=== PATIENT | male | born 1950 | race Caucasian/White ===

== ENCOUNTER → 2020-01-07 | Outpatient (CLI) | payer MEDICARE, BC, OTHER | LOC: M RAD 14:23 | PROVIDERS: ATTEND Internal Medicine Pulmonary Disease | DX: R91.8 Other nonspecific abnormal finding of lung field (principal) ==

== ENCOUNTER → 2020-07-14 | Outpatient (CLI) | payer MEDICARE, BC, OTHER ==
--- NOTE | 2020-07-19 13:25 | REP ---
CT CHEST WITHOUT CONTRAST HISTORY: Other nonspecific abnormal finding of lung field. COMPARISON: Chest CT studies are reviewed dated 01/07/2020 and 10/18/2019. CT FINDINGS: Preliminary digital financial reporting director radiograph is unremarkable. There is a small peripheral cyst in the upper pole of the left kidney. There is opaque material layering in the dependent portion of the gallbladder consistent with gravel-like gallstones. The visualized upper abdominal structures are otherwise unremarkable. No adrenal abnormality. There is no evidence of hilar or mediastinal mass or adenopathy. No pleural or pericardial effusion is seen. Vascular calcification is noted as before. There is an 8-mm noncalcified pulmonary nodule in the left lower lobe, which appears stable in the interval since the 10/18/2019 prior study. In addition, there is a 9-mm nodule in the lingular segment of the left upper lobe, which also appears stable in that interval. No new pulmonary nodule is appreciated. Lung maxwell are otherwise clear. Bone window settings demonstrate old healed rib fractures on the right. There are some degenerative disc changes in the thoracic spine. IMPRESSION: No change in the size of either the lingular or left lower lobe pulmonary nodule in the interval since the 10/18/2019 study. No new finding. Continued follow-up is advised. [facility]
== END ==
LOC: M RAD 10:05
PROVIDERS: ATTEND Internal Medicine Pulmonary Disease
DX: R91.8 Other nonspecific abnormal finding of lung field (principal)

== ENCOUNTER → 2021-01-19 | Outpatient (CLI) | payer MEDICARE, BC, OTHER ==
--- NOTE | 2021-01-19 14:57 | REP ---
INDICATION: ABNORMAL FINDING OF LUNG FIELD. COMPARISON: Multiple the latest 07/14/2020 TECHNIQUE: Noncontrast enhanced helical technique FINDINGS: There is no change in the mediastinum or pulmonary zay. No mass or adenopathy has developed. There are no pleural or pericardial effusions. There is no significant change in appearance of the imaged upper abdomen. Note is again made of cholelithiasis. The imaged osseous structures are stable and intact. Evaluation of the lung maxwell shows no new abnormal nodules, masses, or opacities. The lingular and left lower lobe nodules are stable. There is mild cylindrical bronchiectasis status quo. IMPRESSION: Stable CT examination of the chest. <Electronically signed by Miki Clifford > 01/19/21 [id number]
== END ==
LOC: M RAD 14:25
PROVIDERS: ATTEND Internal Medicine Pulmonary Disease
DX: R91.8 Other nonspecific abnormal finding of lung field (principal)

== ENCOUNTER → 2022-02-10 | Outpatient (CLI) | payer MEDICARE, BC, OTHER | LOC: M RAD 15:00 | PROVIDERS: ATTEND Internal Medicine Pulmonary Disease | DX: Z87.891 Personal history of nicotine dependence (principal) ==

== ENCOUNTER → 2022-05-03 | Outpatient (CLI) | payer MEDICARE, BC, OTHER ==
[~2022-05-03] MED LIST: ATOR1TAB19 PO; BAYE325T12 PO; BREO1INH INH; BUPR150T12 PO; BUPR300T92 PO; BUSP10TA PO; CLON0.5T2 PO; GABA600T4 PO; INCR1INH INH; LAMO200T3 PO; LISI5TAB11 PO; OMEG12004 PO; REXU1TAB4 PO
[2022-05-03 14:29] LABS: PLATELET COUNT, AUTOMATED 195 10^3/uL (150-450)
[2022-05-03 14:48] LABS: PARTIAL THROMBOPLASTIN TIME 30.5 SECONDS (25.9-37.0); PROTHROMBIN TIME 13.6 SECONDS (12.7-14.5)
== END ==
LOC: M PLALAB 10:52
PROVIDERS: ATTEND Internal Medicine Pulmonary Disease
DX: R91.8 Other nonspecific abnormal finding of lung field (principal)

== ENCOUNTER → 2022-05-03 | Outpatient (CLI) | payer MEDICARE, BC, OTHER | LOC: M LABSMTC 10:00 | PROVIDERS: ATTEND Anesthesiology | DX: Z01.818 Encounter for other preprocedural examination (principal); Z11.52 Encounter for screening for COVID-19; R91.8 Other nonspecific abnormal finding of lung field ==

== ENCOUNTER 2022-05-05 06:05 | Day surgery (SDC) | payer MEDICARE, BC, OTHER ==
[~2022-05-05] VITALS: Ht 177.8 cm; Wt 92.5 kg
[2022-05-05] MEDS ORDERED: LR 1,000 ML IV SCH ×2 (06:25→08:15)
[2022-05-05] MEDS ORDERED: CETACAINE SPRAY 5GM As Ordered ONE (07:13)
[2022-05-05] MEDS ORDERED: THROMBIN SOLN 5,000 UNITS VIAL As Ordered ONE (07:13)
[2022-05-05] MEDS ORDERED: EPINEPHrine 1MG/10ML SYRINGE 1.5IN As Ordered ONE (07:13)
[2022-05-05] MEDS ORDERED: LIDOCAINE 4% INJ 5ML AMP As Ordered ONE (07:21)
[2022-05-05] MEDS ORDERED: ALBUTEROL SULFATE 2.5 MG/0.5 ML INH NEB SOLN As Ordered ONE (07:22)
[2022-05-05] MEDS ORDERED: ALBUTEROL SULFATE 2.5 MG/0.5 ML INH NEB SOLN INH ONE ×2 (07:30→08:15)
[2022-05-05] MEDS ORDERED: LIDOCAINE 4% INJ 5ML AMP INH ONE (07:30)
[2022-05-05] MEDS ORDERED: LIDOCAINE 2% INJ 100 MG/5 ML SYRINGE As Ordered ONE (08:02)
[2022-05-05] MEDS ORDERED: MIDAZOLAM INJ 2MG/2ML VIAL (J2250 PER 1MG) As Ordered ONE (08:02)
[2022-05-05] MEDS ORDERED: ROCURONIUM BROMIDE 50 MG/5 ML VIAL As Ordered ONE (08:02)
[2022-05-05] MEDS ORDERED: SUGAMMADEX SODIUM 500 MG/5 ML VIAL (BRIDION) As Ordered ONE (08:02)
[2022-05-05] MEDS ORDERED: ONDANSETRON 4MG 2ML VIAL As Ordered ONE (08:02)
[2022-05-05] MEDS ORDERED: dexameTHASONE 4 MG/ML 1ML VIAL (J1100 PER 1MG) As Ordered ONE (08:02)
[2022-05-05] MEDS ORDERED: fentaNYL 100 MCG/2 ML INJECTION As Ordered ONE (08:02)
[2022-05-05] MEDS ORDERED: fentaNYL 100 MCG/2 ML INJECTION IV PRN (08:15)
[2022-05-05] MEDS ORDERED: oxyCODONE 5MG TAB PO PRN (08:15)
[2022-05-05] MEDS ORDERED: ONDANSETRON 4MG 2ML VIAL IV PRN (08:15)
[2022-05-05 08:59] VITALS: BP 158/76
== END 2022-05-05 09:33 | disposition home or self-care (01) ==
LOC: M SDC 06:05
PROVIDERS: ATTEND Internal Medicine Pulmonary Disease
DX: C34.12 Malignant neoplasm of upper lobe, left bronchus or lung (principal); J44.9 Chronic obstructive pulmonary disease, unspecified; G47.33 Obstructive sleep apnea (adult) (pediatric)
CPT/HCPCS: 31623; 31625; 88104; 88305; J0171; J1100; J2250; J2405; J3010

== ENCOUNTER → 2022-05-24 | Outpatient (CLI) | payer MEDICARE, BC, OTHER ==
[~2022-05-24] MED LIST changes: +ISOVUE-370 76% 100ML VIAL As Ordered ONE
== END ==
LOC: M RAD 08:47
PROVIDERS: ATTEND Thoracic Surgery (Cardiothoracic Vascular Surgery)
DX: C34.92 Malignant neoplasm of unspecified part of left bronchus or lung (principal)
CPT/HCPCS: 71260; Q9967

== ENCOUNTER → 2022-06-01 | Outpatient (CLI) | payer MEDICARE, BC, OTHER ==
[~2022-06-01] MED LIST changes: -ISOVUE-370 76% 100ML VIAL As Ordered ONE
[2022-06-01 17:58] LABS: PLATELET COUNT, AUTOMATED 212 10^3/uL (150-450)
[2022-06-01 18:15] LABS: INR 1.04; PARTIAL THROMBOPLASTIN TIME 30.1 SECONDS (25.9-37.0)
== END ==
LOC: M LAB 16:55
PROVIDERS: ATTEND Internal Medicine Critical Care Medicine
DX: R91.8 Other nonspecific abnormal finding of lung field (principal)

== ENCOUNTER 2022-06-09 06:24 | Day surgery (SDC) | payer MEDICARE, BC, OTHER ==
[~2022-06-09] VITALS: Ht 177.8 cm; Wt 90.2 kg
[~2022-06-09 06:24] MED LIST changes: +AMIT8CAP4 PO; +LOVA1CAP17 PO; +NEUR300C PO; +OMEGCAP9 PO; +PROAAER10 INH; +REXU1TAB3 PO; +RISP1TAB42 PO
[2022-06-09] MEDS ORDERED: LR 1,000 ML IV SCH ×2 (06:45→08:55)
[2022-06-09] MEDS ORDERED: fentaNYL 100 MCG/2 ML INJECTION As Ordered ONE (07:10)
[2022-06-09] MEDS ORDERED: MIDAZOLAM INJ 2MG/2ML VIAL (J2250 PER 1MG) As Ordered ONE (07:10)
[2022-06-09] MEDS ORDERED: ONDANSETRON 4MG 2ML VIAL As Ordered ONE (07:11)
[2022-06-09] MEDS ORDERED: ROCURONIUM BROMIDE 50 MG/5 ML VIAL As Ordered ONE (07:11)
[2022-06-09] MEDS ORDERED: dexameTHASONE 4 MG/ML 1ML VIAL (J1100 PER 1MG) As Ordered ONE (07:11)
[2022-06-09] MEDS ORDERED: propofoL 200 MG/20 ML VIAL As Ordered ONE (07:11)
[2022-06-09] MEDS ORDERED: LIDOCAINE 2% 100MG/5ML SDV (FOR ANES.) As Ordered ONE (07:11)
[2022-06-09] MEDS ORDERED: EPINEPHrine 1MG/10ML SYRINGE 1.5IN As Ordered ONE (07:14)
[2022-06-09] MEDS ORDERED: LIDOCAINE 1% SDV 30ML VIAL As Ordered ONE (07:14)
[2022-06-09] MEDS ORDERED: THROMBIN SOLN 5,000 UNITS VIAL As Ordered ONE (07:14)
[2022-06-09] MEDS ORDERED: LIDOCAINE VISCOUS 2% SOLN 15ML UDC As Ordered ONE (07:14)
[2022-06-09] MEDS ORDERED: LIDOCAINE 4% TOPICAL SOLN 50 ML BTL As Ordered ONE (07:14)
[2022-06-09] MEDS ORDERED: CETACAINE SPRAY 5GM As Ordered ONE (07:16)
[2022-06-09] MEDS ORDERED: SUGAMMADEX SODIUM 500 MG/5 ML VIAL (BRIDION) As Ordered ONE (07:54)
[2022-06-09] MEDS ORDERED: PHENYLephrine 500MCG 5ML (100MCG/ML) SYRINGE As Ordered ONE (08:09)
[2022-06-09] MEDS ORDERED: ePHEDrine SULFATE 25 MG/5 ML(5MG/ML) SYRINGE As Ordered ONE (08:09)
[2022-06-09] MEDS ORDERED: fentaNYL 100 MCG/2 ML INJECTION IV PRN (08:55)
[2022-06-09] MEDS ORDERED: oxyCODONE 5MG TAB PO PRN (08:55)
[2022-06-09] MEDS ORDERED: ONDANSETRON 4MG 2ML VIAL IV PRN (08:55)
[2022-06-09] MEDS ORDERED: METOCLOPRAMIDE INJ 10MG/2ML VIAL (J2765 PER 1) IV PRN (08:55)
[2022-06-09] MEDS ORDERED: ALBUTEROL SULFATE 2.5 MG/0.5 ML INH NEB SOLN INH ONE (08:55)
[2022-06-09 11:00] VITALS: BP 135/82
== END 2022-06-09 11:05 | disposition home or self-care (01) ==
LOC: M SDC 06:24
PROVIDERS: ATTEND Internal Medicine Critical Care Medicine
DX: C34.12 Malignant neoplasm of upper lobe, left bronchus or lung (principal)
CPT/HCPCS: 31623; 31624; 31629; 31653; 31654; 87635; 88104; 88108; 88173; 88305; 88313; J1100; J2250; J2370; J2405; J3010

== ENCOUNTER → 2022-08-19 | Outpatient (CLI) | payer MEDICARE, BC, OTHER | LOC: M RAD 12:22 | PROVIDERS: ATTEND Internal Medicine Pulmonary Disease | DX: R60.0 Localized edema (principal) ==